=== PATIENT | female | born 1985 | race Caucasian/White ===

== ENCOUNTER 2019-05-27 12:32 | Inpatient (IN) | payer OTHER ==
[2019-05-27 13:49] LABS: BASO % 0.8 % (0-2.0); EOS % 4.4 % (0-4.5); HEMATOCRIT 39.8 % (32.4-45.2); HEMOGLOBIN 13.8 GM/dL (10.7-15.3); LYMPH % 35.8 % (8-40); MCH 31.2 pg (25.7-33.7); MCHC 34.8 g/dl (32.0-36.0); MEAN CELL VOLUME 89.7 fl (80-96); MEAN PLT VOLUME 7.4 fl (7.5-11.1); MONO % 5.4 % (3.8-10.2); NEUT % 53.6 % (42.8-82.8); PLATELET COUNT 341 K/MM3 (134-434); RBC 4.44 M/mm3 (3.60-5.2); WHITE BLOOD COUNT 8.2 K/mm3 (4.0-10.0)
[2019-05-27] MEDS ORDERED: ACETAMINOPHEN 1000 MG/100 ML VIAL (NON FORMULARY) IVPB ONE (13:51)
[2019-05-27] MEDS ORDERED: SODIUM CHLORIDE 0.9% 500 ML INFUS.BAG IV ONE (13:51)
[2019-05-27 13:53] LABS: EPI CELLS 1.7 /HPF (0-5/HPF); HYALINE CASTS 0 /lpf (0-8); URINE APPEARANCE CLEAR; URINE BACTERIA 59.2 /hpf (NEGATIVE); URINE BILIRUBIN NEGATIVE (NEGATIVE); URINE COLOR YELLOW; URINE GLUCOSE (UA) NEGATIVE (NEGATIVE); URINE KETONE NEGATIVE (NEGATIVE); URINE LEUK ESTERASE NEGATIVE (NEGATIVE); URINE NITRITE NEGATIVE (NEGATIVE); URINE PROTEIN NEGATIVE (NEGATIVE); URINE RBC 0 /hpf (0-4); URINE UROBILINOGEN 0.2 mg/dL (0.2-1.0); URINE WBC 1 /hpf (0-5)
--- NOTE | 2019-05-27 14:07 | PDOC ---
History of Present Illness - General History Source: Patient <Nba Ortiz - Last Filed: 05/27/19 18:09> <Penny Lucas - Last Filed: 05/29/19 00:27> - General Chief Complaint: Pain Stated Complaint: ABD PAIN Time Seen by Provider: 05/27/19 13:25 Past History - Past Medical History Asthma: No Cancer: No Cardiac Disorders: No COPD: No CHF: No Diabetes: No HTN: No Seizures: No Thyroid Disease: No - Surgical History Appendectomy: Yes - Reproductive History Is Patient Now?: No (#): 1 Para: 1 Spontaneous : 0 - Immunization History Immunization Up to Date: Yes - Psycho Social/Smoking Cessation Hx Smoking History: Never smoked Have you smoked in the past 12 months: No Information on smoking cessation initiated: No Hx Alcohol Use: No Drug/Substance Use Hx: No Substance Use Type: None Hx Substance Use Treatment: No <Nba Ortiz - Last Filed: 05/27/19 18:09> <Penny Lucas - Last Filed: 05/29/19 00:27> - Past Medical History Allergies/Adverse Reactions: Allergies Allergy/AdvReac Type Severity Reaction Status Date / Time No Known Allergies Allergy Verified 05/15/16 22:39 Home Medications: Ambulatory Orders NK [No Known Home Medication] 05/27/19 Review of Systems - Review of Systems Able to Perform ROS?: Yes Is the patient limited Slovak proficient: Yes <Nba Ortiz - Last Filed: 05/27/19 18:09> *Physical Exam - Vital Signs Last Vital Signs Temp Pulse Resp BP Pulse Ox 97.6 F 87 20 146/91 100 05/27/19 12:36 05/27/19 12:36 05/27/19 12:36 05/27/19 12:36 05/27/19 12:36 <Nba Ortiz - Last Filed: 05/27/19 18:09> - Vital Signs Last Vital Signs Temp Pulse Resp BP Pulse Ox 97.8 F 74 18 109/68 98 05/28/19 18:53 05/28/19 18:53 05/28/19 18:53 05/28/19 18:53 05/28/19 17:52 <Penny Lucas - Last Filed: 05/29/19 00:27> ED Treatment Course - LABORATORY CBC & Chemistry Diagram: 05/27/19 13:31 05/27/19 13:31 - RADIOLOGY Radiology Studies Ordered: Category Date Time Status ABDOMEN US -LIMITED [US] Stat Ultrasound 05/27/19 13:52 Ordered <Nba Ortiz - Last Filed: 05/27/19 18:09> - LABORATORY CBC & Chemistry Diagram: 05/27/19 13:31 05/27/19 13:31 - ADDITIONAL ORDERS Additional order review: 05/27/19 13:33 Urine Culture - Final Urine - Urine Clean Catch NO GROWTH OBTAINED 05/27/19 13:31 RBC 4.44 MCV 89.7 MCHC 34.8 RDW 12.0 MPV 7.4 L Neutrophils % 53.6 D Lymphocytes % 35.8 D Monocytes % 5.4 Eosinophils % 4.4 D Basophils % 0.8 - Medications Given in the ED: ED Medications Discontinued Medications Generic Name Dose Route Start Last Admin Trade Name Shayq PRN Reason Stop Dose Admin Acetaminophen 1,000 mg 05/27/19 13:51 05/27/19 15:24 Ofirmev Injection - IVPB 05/27/19 13:52 1,000 mg ONCE ONE Administration Ceftriaxone Sodium 1,000 mg/ 50 mls @ 100 mls/hr 05/27/19 16:53 05/27/19 17: 54 Dextrose IVPB 05/27/19 17:22 100 mls/hr ONCE ONE Administration Metronidazole 500 mg in 100 mls @ 100 mls/hr 05/27/19 16:53 05/27/19 18:25 Flagyl 500mg Premixed Ivpb - IVPB 05/27/19 17:52 100 mls/hr ONCE ONE Administration Sodium Chloride 1,000 mls @ 125 mls/hr 05/27/19 17:00 05/27/19 17:54 Normal Saline - IV 125 mls/hr ASDIR JOSE Administration Sodium Chloride 1,000 mls @ 75 mls/hr 05/27/19 19:30 05/27/19 20:00 Normal Saline - IV 75 mls/hr ASDIR JOSE Administration Morphine Sulfate 4 mg 05/27/19 16:14 05/27/19 17:54 Morphine Injection - IVPUSH 05/27/19 16:15 Not Given ONCE ONE Sodium Chloride 1,000 ml 05/27/19 13:51 05/27/19 15:23 Normal Saline - IV 05/27/19 13:52 1,000 ml ONCE ONE Administration <Penny Lucas - Last Filed: 05/29/19 00:27> Medical Decision Making - Medical Decision Making 05/27/19 13:53 HPI: 33F h/o known gallstones found incidentally on imaging presents w/ 2 days of sharp colicky RUQ abdominal pain with radiation to left lower back. Endorses inabilty to tolerate food due to vomiting (NBNB). Denies f/c, nausea, diarrhea, dysuria, sick contacts. H/o appendectomy and . LMP due now, patient home test neg., she is not concerned about . Last BM this AM , nonbloody stool. PMH: denies MEDs: denies control ring. NKDA SH: denies etoh ROS: CONSTITUTIONAL: Denies F / C RESP: Denies SOB CARD: Denies chest pain GI: See HPI. Denies N / D, bloody stool. : Denies dysuria, PE: GEN: NAD, well appearing. AAOx3. HEENT: NC/AT. No facial asymmetry. Normal voice. Supple neck w/ FROM. CV: S1/S2, RRR, no m/r/g LUNG: CTAB, no wheezes, crackles, rales, rhonchi. GI: +LCVAT. +TTP RUQ and LUQ. Mild TTP LLQ. Abdomen soft, nd. +BS. EXTREMITIES: No obvious deformities of all extremities. SKIN: warm, dry, normal turgor PSYCH: normal mood and affect NEURO: Moving all extremities well, normal gait and ambulation MDM: 33F w/ gallstones found incidentally on imaging presenting w/ 2 days of RUQ abdominal pain radiating to left lower back and nbnb vomiting w/ food intake. DDx - gallstone / biliary pathology, pancreatitis, ulcer, renal stone. unlikely sbo. Abdominal pain - CBC, CMP, Lipase - UA, - RUQ US - fluids, pain ctrl 05/27/19 14:08 neg. 05/27/19 14:33 labs reviewed f/u US results 05/27/19 16:27 US results reviewed - multiple mobile gallstones including neck region w/o sonographic evidence of acute del.; see report. reassessed patient - in pain despite tylenol, still cleaner in RUQ patient is declining morphine consulting general surgery 05/27/19 16:45 admit discussed patient w/ Dr. Cao: NPO, IV fluids, abx 05/27/19 16:56 Patient endorsed and admitted to med/surg under Dr. Mae Abx coverage w/ ceftriaxone and flagyl NS at 125cc/h // ADMITTED for symptomatic cholelithiasis <Nba Ortiz - Last Filed: 05/27/19 18:09> Discharge - Discharge Information Problems reviewed: Yes <Nba Ortiz - Last Filed: 05/27/19 18:09> - Admission Yes <Penny Lucas - Last Filed: 05/29/19 00:27> - Discharge Information Clinical Impression/Diagnosis: Symptomatic cholelithiasis Condition: Stable
[2019-05-27 14:22] LABS: ALBUMIN 3.8 g/dl (3.4-5.0); BILIRUBIN,TOTAL 0.4 mg/dL (0.2-1); BLOOD UREA NITROGEN 11.7 mg/dL (7-18); CALCIUM 9.2 mg/dL (8.5-10.1); CREATININE 0.8 mg/dL (0.55-1.3); TOT PROT 7.5 g/dl (6.4-8.2)
[2019-05-27] MEDS ORDERED: ACETAMINOPHEN INJECTION 100 ML IVPB ONE (15:14)
--- NOTE | 2019-05-27 15:42 | PDOC ---
Documentation entered by Lashonda Belcher SCRIBE, acting as scribe for Penny Lucas MD. Penny Lucas MD: This documentation has been prepared by the Ye duarte Xhesika, SCRIBE, under my direction and personally reviewed by me in its entirety. I confirm that the documentation accurately reflects all work, treatment, procedures, and medical decision making performed by me. Attending Attestation - Resident Resident Name: Nba Ortiz - ED Attending Attestation I have performed the following: I have examined & evaluated the patient, The case was reviewed & discussed with the resident, I agree w/resident's findings & plan - HPI HPI: 05/27/19 13:50 The patient is a 33 year old female with a significant past medical history of gallstones and L ovarian cyst who presents to the ED with 2 days of RUQ pain. Patient describes the pain as constant, sharp, radiating to her L lower back, worsened with PO intake and is associated with nausea and nbnb vomiting. Patient notes she has a history of gallstones and L ovarian cyst on MRI. Patient notes she took a home test which was negative at the onset of her symptoms. Patient reports having a normal BM. Pt notes her LMP was last month. Denies fever, chills, chest pain, SOB, palpitation, dizziness, weakness, D, bladder and bowel problems, leg swelling, No sick contacts or travel. No new changes in medications. Allergies: None Past Medical History: gallstones and L ovarian cyst Social history: Lives with family. No tobacco, ETOH or drug use. Surgical history: Appendectomy, Meds: as documented in EMR PCP: Dr. Rupa Chaney - Physicial Exam PE: 05/27/19 13:51 Agree with the resident's HPI and PE as documented in the electronic medical record. NAD, well appearing, EOMI, PERRL, MMM, nl conjunctiva, anicteric; neck supple. lungs clear, RRR, abdomen soft, +RUQ tenderness. no CVAT. no rebound or guarding.. Back nontender. MACKENZIE x4, no focal neuro deficits. No peripheral edema. normal color for ethnicity, WWP. 05/27/19 15:40 - Medical Decision Making 05/27/19 15:41 Vital Signs Temp Pulse Resp BP Pulse Ox 97.6 F 87 20 146/91 100 05/27/19 12:36 05/27/19 12:36 05/27/19 12:36 05/27/19 12:36 05/27/19 12:36 DDx abdominal pain: Renal colic, biliary colic, metabolic/electrolyte derangements. GERD, PUD, esophageal spasm, pancreatitis, hepatitis, constipation , colitis, gastroenteritis, cholecystitis, UTI, pyelonephritis, ileus, SBO, medication side effect, hernia, appendicitis, diverticulitis. msk strain Laboratory results are within normal limits, normal LFTs and lipase. No lower abdominal tenderness to suggest appendicitis or diverticulitis. Making appropriate bowel movements. Patient is given GI cocktail, analgesia reassess. Official right upper quadrant ultrasound with multiple gallstones, including at the GB neck but no evidence of cholecystitis. given persistent sx, RUQ pain, +stones, sx cholelithiasis surg cs Dr Cao. analgesia, NPO, bowel rest, abx - ceftriaxone/flagyl recs: agree with above. admit Dr Mea, surg cs, sx cholelithiasis 05/27/19 17:02
[2019-05-27] MEDS ORDERED: morphine CARPU-JECT 4 MG/1 ML DISP.SYRIN IVPUSH ONE (16:14)
[2019-05-27] MEDS ORDERED: CEFTRIAXONE 1,000 MG in DEXTROSE 5%-WATER - 50 ML IVPB ONE (16:53)
[2019-05-27] MEDS ORDERED: SODIUM CHLORIDE 1,000 ML IV SCH ×2 (17:00→19:30)
[2019-05-27] MEDS ORDERED: morphine SULFATE 4 MG/ML VIAL ONE (17:41)
[2019-05-27] MEDS ORDERED: CEFTRIAXONE 1 GM/50 ML BAG ONE (17:41)
--- NOTE | 2019-05-27 19:25 | HP ---
Admitting History and Physical - Primary Care Physician PCP: Denise Mae - Admission History of Present Illness: 33F h/o known gallstones found incidentally on imaging presents w/ 2 days of sharp colicky RUQ abdominal pain with radiation to left lower back. Endorses inabilty to tolerate food due to vomiting (NBNB). Denies f/c, nausea, diarrhea, dysuria, sick contacts. H/o appendectomy and . LMP due now, patient home test neg., she is not concerned about . Last BM this AM , nonbloody stool. - Past Medical History ...LMP: 04/28/19 ...: No - Past Surgical History Past Surgical History: Yes: None - Smoking History Smoking history: Never smoked Have you smoked in the past 12 months: No - Alcohol/Substance Use Hx Alcohol Use: No History of Substance Use: reports: None - Social History History of Recent Travel: No Home Medications - Allergies Allergies/Adverse Reactions: Allergies Allergy/AdvReac Type Severity Reaction Status Date / Time No Known Allergies Allergy Verified 05/15/16 22:39 - Home Medications Home Medications: Ambulatory Orders NK [No Known Home Medication] 05/27/19 Physical Examination Vital Signs: Vital Signs Temperature 98.4 F 05/27/19 18:59 Pulse Rate 71 05/27/19 18:59 Respiratory Rate 18 05/27/19 18:59 Blood Pressure 120/78 05/27/19 18:59 O2 Sat by Pulse Oximetry (%) 100 05/27/19 12:36 Constitutional: Yes: No Distress HENT: Yes: Atraumatic Neck: Yes: Supple Cardiovascular: Yes: Regular Rate and Rhythm Respiratory: Yes: CTA Bilaterally Gastrointestinal: Yes: Normal Bowel Sounds Extremities: Yes: WNL Edema: No Neurological: Yes: Alert, Oriented Labs: CBC, BMP 05/27/19 13:31 05/27/19 13:31 Problem List - Problems (1) Symptomatic cholelithiasis Assessment/Plan: npo ivf , prn pain meds surgery consult Code(s): K80.20 - CALCULUS OF GALLBLADDER W/O CHOLECYSTITIS W/O OBSTRUCTION Assessment/Plan Laboratory Tests 05/27/19 05/27/19 05/27/19 13:31 13:31 13:31 WBC 8.2 RBC 4.44 Hgb 13.8 Hct 39.8 D MCV 89.7 MCH 31.2 MCHC 34.8 RDW 12.0 Plt Count 341 MPV 7.4 L Absolute Neuts (auto) 4.4 Neutrophils % 53.6 D Lymphocytes % 35.8 D Monocytes % 5.4 Eosinophils % 4.4 D Basophils % 0.8 Nucleated RBC % 0 Sodium 139 Potassium 4.0 Chloride 105 Carbon Dioxide 27 Anion Gap 7 L BUN 11.7 Creatinine 0.8 Est GFR (CKD-EPI)AfAm 113.06 Est GFR (CKD-EPI)NonAf 97.55 Random Glucose 79 Calcium 9.2 Total Bilirubin 0.4 AST 16 ALT 27 Alkaline Phosphatase 62 Total Protein 7.5 Albumin 3.8 Lipase 227 Serum , Qual Negative Urine Color Urine Appearance Urine pH Ur Specific [place] Urine Protein Urine Glucose (UA) Urine Ketones Urine Blood Urine Nitrite Urine Bilirubin Urine Urobilinogen Ur Leukocyte Esterase Urine WBC (Auto) Urine RBC (Auto) Urine Casts (Auto) U Epithel Cells (Auto) Urine Bacteria (Auto) Urine HCG, Qual 05/27/19 05/27/19 13:33 13:33 WBC RBC Hgb Hct MCV MCH MCHC RDW Plt Count MPV Absolute Neuts (auto) Neutrophils % Lymphocytes % Monocytes % Eosinophils % Basophils % Nucleated RBC % Sodium Potassium Chloride Carbon Dioxide Anion Gap BUN Creatinine Est GFR (CKD-EPI)AfAm Est GFR (CKD-EPI)NonAf Random Glucose Calcium Total Bilirubin AST ALT Alkaline Phosphatase Total Protein Albumin Lipase Serum , Qual Urine Color Yellow Urine Appearance Clear Urine pH 7.0 Ur Specific [place] 1.005 L Urine Protein Negative Urine Glucose (UA) Negative Urine Ketones Negative Urine Blood 1+ H Urine Nitrite Negative Urine Bilirubin Negative Urine Urobilinogen 0.2 Ur Leukocyte Esterase Negative Urine WBC (Auto) 1 Urine RBC (Auto) 0 Urine Casts (Auto) 0 U Epithel Cells (Auto) 1.7 Urine Bacteria (Auto) 59.2 Urine HCG, Qual Negative Active Medications Generic Name Dose Route Start Last Admin Trade Name Freq PRN Reason Stop Dose Admin Sodium Chloride 1,000 mls @ 125 mls/hr 05/27/19 17:00 05/27/19 17:54 Normal Saline - IV 125 mls/hr ASDIR JOSE Administration Active Medications Generic Name Dose Route Start Last Admin Trade Name Freq PRN Reason Stop Dose Admin Fentanyl 50 mcg 05/28/19 13:08 Sublimaze Injection - IVPUSH [id number] PRN PAIN-PACU ORDER X 4 DOSES ONLY Lactated Ringer's 1,000 mls @ 125 mls/hr 05/28/19 13:15 Lactated Ringers Solution IV ASDIR JOSE Sodium Chloride 1,000 mls @ 75 mls/hr 05/28/19 13:14 Normal Saline - IV [facility]IR [facility] Morphine Sulfate 2 mg 05/28/19 13:14 Morphine Sulfate IVPUSH Q4H PRN PAIN LEVEL 4 - 6 Ondansetron HCl 4 mg 05/28/19 13:08 Zofran Injection IVPUSH Q6H PRN NAUSEA AND/OR VOMITING Oxycodone HCl 5 mg 05/28/19 13:08 Roxicodone - PO Q4H PRN PAIN LEVEL 1-5
[2019-05-27] MEDS ORDERED: MORPHINE SULFATE 2 MG/ML VIAL IVPUSH PRN (19:31)
[2019-05-27 20:35] VITALS: BMI 26.6
--- NOTE | 2019-05-28 09:27 | CONSULT ---
- Consultation REQUESTING PROVIDER: Nba Ortiz MD CONSULT REQUEST: We have been asked to surgically evaluate this patient for ( specify). PCP:Denise Mae HISTORY OF PRESENT ILLNESS: ASHLIE who is a 33 y/o female w/known cholelithiasis who presented w/ to the [facility] ED with 2 days of RUQ pain. Patient describes the pain as constant, sharp, radiating to her L lower back, worsened with oral intake and is associated with nausea and vomiting. I. Patient notes she took a home test which was negative at the onset of her symptoms. Patient reports having a normal BM. Pt notes her LMP was last month. 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 PMHx: left ovarian cyst PSHx: lap appendectomy; C-S Home Medications Medication Instructions Recorded NK [No Known Home Medication] 05/27/19 Allergies Allergy/AdvReac Type Severity Reaction Status Date / Time No Known Allergies Allergy Verified 05/15/16 22:39 REVIEW OF SYSTEMS: CONSTITUTIONAL: Absent: fever, chills, diaphoresis, generalized weakness, malaise, loss of appetite, weight change CARDIOVASCULAR: Absent: chest pain, syncope, palpitations, irregular heart rate, lightheadedness , peripheral edema RESPIRATORY: Absent: cough, shortness of breath, dyspnea with exertion, wheezing, stridor, hemoptysis GASTROINTESTINAL: Present: abdominal pain, abdominal distension, nausea, vomiting GENITOURINARY: Absent: dysuria, frequency, urgency, hesitancy, hematuria, flank pain, genital pain MUSCULOSKELETAL: Absent: myalgia, arthralgia, joint swelling, back pain, neck pain SKIN: Absent: rash, itching, pallor HEMATOLOGIC/IMMUNOLOGIC: Absent: easy bleeding, easy bruising, lymphadenopathy NEUROLOGIC: Absent: headache, focal weakness, paresthesias, dizziness, unsteady gait, seizure, mental status changes, bladder or bowel incontinence PSYCHIATRIC: Absent: anxiety, depression, suicidal or homicidal ideation, hallucinations. PHYSICAL EXAM: GENERAL: Awake, alert, and fully oriented, in no acute distress. HEAD: Normal with no signs of trauma. EYES: PERRL, sclera anicteric, conjunctiva clear. NECK: Normal ROM, supple without lymphadenopathy, JVD, or masses. ABDOMEN: Soft, tender RUQ, not distended, normoactive bowel sounds, no guarding , no rebound, no masses. No organomegaly. No hernias. Healed port sites and C- S scar.US MUSCULOSKELETAL: Normal ROM at all joints. No bony deformities or tenderness. No CVA tenderness. UPPER EXTREMITIES: 2+ pulses, warm, well-perfused. No cyanosis. Cap refill <2 seconds. No peripheral edema. LOWER EXTREMITIES: 2+ pulses, warm, well-perfused. No calf tenderness. No peripheral edema. NEUROLOGICAL: Normal speech, gait not observed. PSYCH: Cooperative. Good eye contact. Appropriate mood and affect. SKIN: Warm, dry, normal turgor, no rashes or lesions noted. Vital Signs Temperature 98 F 05/28/19 06:37 Pulse Rate 79 05/28/19 06:37 Respiratory Rate 18 05/28/19 06:37 Blood Pressure 110/67 05/28/19 06:37 O2 Sat by Pulse Oximetry (%) 100 05/27/19 20:40 Lab Results WBC 8.2 K/mm3 (4.0-10.0) 05/27/19 13:31 RBC 4.44 M/mm3 (3.60-5.2) 05/27/19 13:31 Hgb 13.8 GM/dL (10.7-15.3) 05/27/19 13:31 Hct 39.8 % (32.4-45.2) D 05/27/19 13:31 MCV 89.7 fl (80-96) 05/27/19 13:31 MCHC 34.8 g/dl (32.0-36.0) 05/27/19 13:31 RDW 12.0 % (11.6-15.6) 05/27/19 13:31 Plt Count 341 K/MM3 (134-434) 05/27/19 13:31 Sodium 139 mmol/L (136-145) 05/27/19 13:31 Potassium 4.0 mmol/L (3.5-5.1) 05/27/19 13:31 Chloride 105 mmol/L (98-107) 05/27/19 13:31 Carbon Dioxide 27 mmol/L (21-32) 05/27/19 13:31 Anion Gap 7 MMOL/L (8-16) L 05/27/19 13:31 BUN 11.7 mg/dL (7-18) 05/27/19 13:31 Creatinine 0.8 mg/dL (0.55-1.3) 05/27/19 13:31 Random Glucose 79 mg/dL (74-106) 05/27/19 13:31 Calcium 9.2 mg/dL (8.5-10.1) 05/27/19 13:31 US reviewed. LFT's are normal. IMP:biliary colic; possible acute cholecystitis PLAN: Lap del possible open; r/b/t/a's d/w the patient and she wishes to proceed; we discussed this in [place]. Phong Cao MD FACS
[2019-05-28] MEDS ORDERED: PROPOFOL 20 ML ONE ×2 (10:35)
[2019-05-28] MEDS ORDERED: BUPIVACAINE HCL/PF 0.5% (5 MG/ML) 30 ML VIAL IJ ONE ×3 (10:36)
[2019-05-28] MEDS ORDERED: MIDAZOLAM HCL 2 MG/2 ML SINGLE DOSE VIAL ONE (10:36)
[2019-05-28] MEDS ORDERED: NEOSTIGMINE METHYLSULFATE 0.5 MG/ML - 10 ML MDV ONE (11:50)
--- NOTE | 2019-05-28 12:01 | OP ---
Operative Note - Note: Operative Date: 05/28/19 Pre-Operative Diagnosis: acute cholecystitis/cholelithiasis Operation: laparoscopic cholecystectomy Findings: acute cholecystitis/cholelithiasis Post-Operative Diagnosis: Same as Pre-op Surgeon: Phong Cao Retail Sales Advisor: Arvind Carrion Anesthesiologist/WESTERN TACK ASSEMBLY LINE WORKER: Stephanie Serna Anesthesia: General Specimens Removed: gallbladder and contents Estimated Blood Loss (mls): 20 Drains & Tubes with Location: none
--- NOTE | 2019-05-28 12:37 | SURG ---
Surgery Planetarium Sky Show Technician Note Planetarium Sky Show Technician: Arvind Carrion PA-C Date of Service: 05/28/19 Diagnosis: Acute cholecystitis/cholelithiasis Procedure: Laprascopic cholecystectomy I was present for the entirety of the operative procedure. For further detail, please refer to operative report. Visit type - Case Type Case Type: ED Admission - Emergency Emergency Visit: Yes ED Registration Date: 05/27/19 Care time: The patient presented to the Emergency Department on the above date and was hospitalized for further evaluation of their emergent condition. - New patient This patient is new to me today: Yes Date on this admission: 05/28/19
[2019-05-28] MEDS ORDERED: oxyCODONE HCL 5 MG TABLET PO PRN (13:08)
[2019-05-28] MEDS ORDERED: ONDANSETRON 4 MG/2 ML VIAL IVPUSH PRN (13:08)
[2019-05-28] MEDS ORDERED: SODIUM CHLORIDE 1,000 ML IV SCH (13:14)
[2019-05-28] MEDS ORDERED: MORPHINE SULFATE 2 MG/ML VIAL IVPUSH PRN (13:14)
[2019-05-28] MEDS ORDERED: LACTATED RINGERS SOLUTION 1,000 ML IV SCH (13:15)
--- NOTE | 2019-05-28 18:19 | PN ---
Progress Note, Physician - Current Medication List Current Medications: Active Medications Fentanyl (Sublimaze Injection -) 50 mcg IVPUSH [id number] PRN PRN Reason: PAIN-PACU ORDER X 4 DOSES ONLY Lactated Ringer's (Lactated Ringers Solution) 1,000 mls @ 125 mls/hr IV ASDIR JOSE Sodium Chloride (Normal Saline -) 1,000 mls @ 75 mls/hr IV ASDIR JOSE Morphine Sulfate (Morphine Sulfate) 2 mg IVPUSH Q4H PRN PRN Reason: PAIN LEVEL 4 - 6 Ondansetron HCl (Zofran Injection) 4 mg IVPUSH Q6H PRN PRN Reason: NAUSEA AND/OR VOMITING Oxycodone HCl (Roxicodone -) 5 mg PO Q4H PRN PRN Reason: PAIN LEVEL 1-5 - Objective Vital Signs: Vital Signs Temperature 98 F 05/28/19 17:52 Pulse Rate 80 05/28/19 17:52 Respiratory Rate 18 05/28/19 17:52 Blood Pressure 115/86 05/28/19 17:52 O2 Sat by Pulse Oximetry (%) 98 05/28/19 17:52 Constitutional: Yes: No Distress HENT: Yes: Atraumatic Neck: Yes: Supple Cardiovascular: Yes: Regular Rate and Rhythm Respiratory: Yes: CTA Bilaterally Gastrointestinal: Yes: Normal Bowel Sounds Extremities: Yes: WNL Edema: No Neurological: Yes: Alert, Oriented Labs: CBC, BMP 05/27/19 13:31 05/27/19 13:31 Problem List - Problems (1) Symptomatic cholelithiasis Assessment/Plan: s/p surgery prn pain meds Code(s): K80.20 - CALCULUS OF GALLBLADDER W/O CHOLECYSTITIS W/O OBSTRUCTION
--- NOTE | 2019-05-28 18:20 | DS ---
Physical Examination Vital Signs: Vital Signs Temperature 98 F 05/28/19 17:52 Pulse Rate 80 05/28/19 17:52 Respiratory Rate 18 05/28/19 17:52 Blood Pressure 115/86 05/28/19 17:52 O2 Sat by Pulse Oximetry (%) 98 05/28/19 17:52 Labs: CBC, BMP 05/27/19 13:31 05/27/19 13:31 Discharge Summary Problems reviewed: Yes Reason For Visit: CHOLELITHIASIS Current Active Problems Symptomatic cholelithiasis (Acute) Condition: Stable - Instructions Diet, Activity, Other Instructions: Dr. Cao Discharge Instructions Dear EMI RUSSO, Post Operative Instructions Physical activity Resume your normal everyday activity as tolerated no heavy lifting or exercise until seen by your surgeon. You may walk unlimited amounts of and climb stairs. You may resume driving the car when you feel safe and comfortable behind the wheel. Wound care If you have a bandage, leave it on, and keep dry for 48 - 72 hours. After that time discard the outer bandage. If there are tapes on the skin under the outer bandage, leave them in place. They will peel off in the next 7 to 10 days. Do Not peel them off. You may shower 2 days after surgery. If there are tapes present on the skin, they can get wet. Diet There are no dietary restrictions. Eat healthy, high-fiber foods. Drink 6 to 8 glasses of liquid each day. This will assist in keeping your bowels are regular. Pain management You may take Tylenol or acetaminophen or Ibuprofen (for example, Motrin, Advil etc.) Any pain prescription medication ordered should be taken as prescribed for moderate to severe pain. Call Dr. Cao for any of the following: Severe pain not relieved by medication Fever of 101 or higher Excessive bleeding or drainage on dressing Inability to urinate Call the office at [phone] for a post operative appointment in 7 - 10 days. Disposition: HOME - Home Medications Comprehensive Discharge Medication List: Ambulatory Orders NK [No Known Home Medication] 05/27/19
[2019-05-28 18:56] VITALS: BP 109/68; PULSE 74; TEMP 97.8
--- NOTE | 2019-05-29 17:31 | PATH ---
Surgical Pathology Report Patient Name: EMI OH Med. Rec. #: [id number] /Age/Gender: 1985 (Age: 33) / F Account: [id number] Location: [facility]/SURG Taken: 05/28/2019 Received: 05/28/2019 Reported: 05/29/2019 Physicians: Phong Cao MD Specimen(s) Received GALLBLADDER Clinical History Cholelithiasis Final Diagnosis GALLBLADDER, CHOLECYSTECTOMY: CHRONIC CHOLECYSTITIS, CHOLESTEROLOSIS, AND CHOLELITHIASIS. ONE REACTIVE LYMPH NODE. Electronically Signed Siddhartha Kidd M.D. Gross Description Received in formalin, labeled "gallbladder," is a 5.2 x 2.2 x 2.2 cm. gallbladder with a 0.2 cm. in length portion of cystic duct attached. A possible pericystic lymph node is noted. The outer surface varies from smooth to shaggy. The lumen contains multiple stones, the largest measures 1.1 cm in greatest dimension. The mucosa is focally superficial eroded. The wall of the gallbladder measures 0.3cm. in thickness. Dental Ceramist Assistant sections are submitted in one cassette. KWS/05/28/2019 sulki/05/28/2019
--- NOTE | 2019-05-30 06:15 | OP ---
DATE OF OPERATION: 05/28/2019 PREOPERATIVE DIAGNOSIS: Acute cholecystitis and cholelithiasis. POSTOPERATIVE DIAGNOSIS: Acute cholecystitis and cholelithiasis. PROCEDURE: Laparoscopic cholecystectomy. SURGEON: Phong Cao MD VETERINARIAN: DILIA Trujillo ANESTHESIA: General. OPERATIVE FINDINGS: Acute cholecystitis and cholelithiasis. The rest of the findings were unremarkable. DESCRIPTION OF PROCEDURE: The patient was placed on the operating room table in supine position. After the induction of general anesthesia, the patient's abdomen was prepped with ChloraPrep and draped in sterile fashion. Time-out was taken and then pneumoperitoneum established above the umbilicus using a Veress needle. Once 15 mm of intra-abdominal pressure was obtained, a 5-mm port was placed at the umbilicus. Additional lateral 5-mm ports and a subxiphoid 12-mm port were placed and laparoscopy carried out, and the previously noted findings were observed. The gallbladder was placed on cephalad and lateral traction, and dissection was begun at the neck of the gallbladder where the peritoneum was opened medially and laterally using blunt and sharp dissection and electrocautery. Dissection continued in the triangle of Calot where the cystic duct was identified coursing from the neck of the gallbladder distally to the common bile duct. It was dissected proximally and distally for length. Similarly, the artery was similarly identified and dissected. A critical view of safety was taken, and then the cystic duct divided proximally and distally using Endo Landry after it was clipped twice proximally and distally with large hemoclips. The artery was similarly clipped and divided. Hemostasis was checked for and noted to be good and then the gallbladder was removed from the liver bed in a retrograde fashion using electrocautery. Prior to removal from the edge of the liver, hemostasis was again verified and then the gallbladder removed from the edge of the liver, placed in an EndoCatch, and brought out through the subxiphoid port. Pneumoperitoneum was reestablished, hemostasis verified again, and then the 5-mm lateral and subxiphoid ports were removed under laparoscopic vision without evidence of bleeding from the port sites. The umbilical port was removed and the pneumoperitoneum evacuated. All port sites were infiltrated with 0.5% Marcaine and the skin edges closed with 4-0 Biosyn in a subcuticular and continuous fashion. Steri-Strips and Band-Aid dressings were placed and the procedure terminated at this point and the patient aroused from general anesthesia and transferred to the post anesthesia care unit in stable condition awake and alert. ESTIMATED BLOOD LOSS: 20 mL. REPLACEMENTS: Crystalloid. DRAINS: None. SPECIMENS: Gallbladder and contents to pathology. I, Phong Cao, was physically present in the operating room from the time the patient was placed on the operating room table until she was transferred to the post anesthesia care unit in my company. MD EULALIO Javier/[id number] MTDD
== END 2019-05-28 19:54 | disposition home or self-care (01) | DRG 263 ==
LOC: JER 12:32 → JERBED 16:48 → J7W 18:40
PROVIDERS: ADMIT Internal Medicine; ATTEND Internal Medicine
PROC: 0FT44ZZ Resection of Gallbladder, Percutaneous Endoscopic Approach (ICD-10-PCS; principal; 2019-05-28 13:00)
DX: K80.00 Calculus of gallbladder with acute cholecystitis without obstruction (principal); N83.202 Unspecified ovarian cyst, left side; R11.2 Nausea with vomiting, unspecified
CPT/HCPCS: 36415; 76705-TC; 80053; 81003; 83690; 84703; 85025; 87086; 88304-TC; 94760; 99285-25; J0131; J7030